=== PATIENT | female | born 1985 | race American Indian/Alaskan Native ===

== ENCOUNTER 2022-07-17 07:30 | Day surgery (SDC) | payer OTHER ==
[~2022-07-17] VITALS: Ht 160 cm; Wt 88.9 kg
[~2022-07-17 07:30] MED LIST: Aldomet PO; CRESTOR10 MG PO; Procardia 10MG CAP PO; Vistaryl PO
== END 2022-07-17 20:10 | disposition home or self-care (01) ==
LOC: CIR.AMB 07:30 → O/R 10:04 → CIR.AMB 15:00 → O/R 20:10
PROVIDERS: ATTEND Surgery
DX: D05.02 Lobular carcinoma in situ of left breast (principal); N60.81 Other benign mammary dysplasias of right breast; N60.92 Unspecified benign mammary dysplasia of left breast; N60.82 Other benign mammary dysplasias of left breast; D24.1 Benign neoplasm of right breast; D24.2 Benign neoplasm of left breast; E78.49 Other hyperlipidemia; Z20.822 Contact with and (suspected) exposure to COVID-19